=== PATIENT | male | born 1990 | race Caucasian/White ===

== ENCOUNTER 2016-10-24 13:07 | Emergency (ER) | payer BC ==
[~2016-10-24 13:07] MED LIST: ADVIL200 M1 PO; CLONIDINE HCL0.1 MG PO; DEPAKOTE500 MG; HUMALOG KW200 UNIT/1 SC; HUMALOG100 U/ML; LANTUS100 U/ML; LANTUS100 U/ML SC; LANTUS100 UNITS/ SC; NORCO 5/325 TAB1 TAB PO; PHENERGAN25 MG/SUPP RC; PHOS NAK PO; REGLAN5 MG PO; ROZEREM8 MG; ZOFRAN ODT4 MG/UDTAB PO; ZOFRAN4 MG PO; ZOLOFT100 MG; [UNRECOGNIZED DRUG - REMARK]
[2016-10-24] MEDS ORDERED: PROZAC20 M3 (13:14)
[2016-10-24] MEDS ORDERED: TRESIBA FL200 UNIT/1 SC (13:21)
[2016-10-24] MEDS ORDERED: LANTUS100 UNITS/ SC (13:22)
[2016-10-24 13:33] LABS: BASO % 0.1 % (0-2); HCT-HEMATOCRIT 43.4 % (36.0-53.5); HGB-HEMOGLOBIN 15.3 gm/dl (13.5-17.0); IMMATURE GRANULOCYTES ABSOLUTE 0.03 tho/cmm (0-0.03); IMMATURE GRANULOCYTES PERCENT 0.2 % (0-0.3); LYMPH % 9.5 % (20-45); LYMPH ABSOLUTE COUNT 1.2 tho/cmm (0.8-4.5); MCH (MEAN CORPUSCULAR HGB) 29.5 pg (28.0-32.0); MCHC MEAN CORPUSCULAR HGB CONC 35.3 % (32.0-36.0); MCV (MEAN CELL VOLUME) 83.6 fl (82.0-96.0); MONO % 3.8 % (0-12); MONOCYTE ABSOLUTE COUNT 0.5 tho/cmm (0.0-1.2); NEUTROPHIL ABSOLUTE COUNT 10.7 tho/cmm (1.6-8.0); NEUTROPHIL-AUTOMATED 10.7 tho/cmm (1.6-8.0); NEUTROPHILS % 86.4 % (40-80); PLATELET COUNT 275 tho/cmm (150-450); RED BLOOD COUNT 5.19 mil/cmm (4.40-5.70); RED CELL DISTRIBUTION WIDTH 12.9 % (12.4-16.4); WHITE BLOOD COUNT 12.4 tho/cmm (4.0-10.0)
[2016-10-24 13:40] LABS: KETONE-BETA (WHOLE BLOOD) 1.8 mmol/L (0.0-0.6)
[2016-10-24 13:56] LABS: ALB/GLOB RATIO 1.5 (0.8-2.0); ALBUMIN 4.8 g/dl (3.5-5.0); ALKALINE PHOSPHATASE 77 U/L (33-138); ALT/SGPT 27 U/L (12-78); ANION GAP 23 mmol/L (0-20); AST/SGOT 25 U/L (10-40); BILIRUBIN,DIRECT 0.2 mg/dl (0.0-0.3); BILIRUBIN,INDIRECT 0.8 mg/dL (0.0-1.0); BLOOD UREA NITROGEN 19 mg/dl (6-24); CALCIUM 9.4 mg/dl (8.5-10.5); CARBON DIOXIDE-VENOUS 17 mmol/L (22-32); CHLORIDE 103 mmol/l (96-110); CREATININE 1.23 mg/dl (0.60-1.30); GLUCOSE 203 mg/dL (70-110); LIPASE 59 U/L (73-393); POTASSIUM 4.2 mmol/L (3.7-5.1); SODIUM 139 mmol/L (135-145); eGFR VALUE FOR BLACK >90 mL/Min
[2016-10-24 15:35] LABS: URINE LEUKOCYTE ESTERASE NEGATIVE (NEG); URINE PROTEIN MODERATE (NEG)
[2016-10-24 15:38] LABS: URINE APPEARANCE CLEAR; URINE BILIRUBIN NEGATIVE (NEG); URINE BLOOD SMALL (NEG); URINE COLOR YELLOW; URINE GLUCOSE (UA) MODERATE (NEG); URINE KETONE LARGE (NEG); URINE NITRITE NEGATIVE (NEG)
[2016-10-24 15:43] LABS: URINE EPITHELIAL CELLS 0-1 /[HPF] (0-10); URINE RBC 0-1 /[HPF] (0-5); URINE WBC 0 /[HPF] (0-5)
[2016-10-24 16:14] LABS: KETONE-BETA (WHOLE BLOOD) 2.7 mmol/L (0.0-0.6)
[2016-10-24 16:21] LABS: ANION GAP 16 mmol/L (0-20); BLOOD UREA NITROGEN 17 mg/dl (6-24); CALCIUM 8.5 mg/dl (8.5-10.5); CARBON DIOXIDE-VENOUS 22 mmol/L (22-32); CHLORIDE 109 mmol/l (96-110); CREATININE 0.91 mg/dl (0.60-1.30); POTASSIUM 4.1 mmol/L (3.7-5.1); SODIUM 143 mmol/L (135-145); eGFR VALUE FOR BLACK >90 mL/Min
[2016-10-24 16:26] LABS: GLUCOSE 92 mg/dL (70-110)
[2016-10-24] MEDS ORDERED: ZOFRAN ODT4 MG PO (17:09)
== END 2016-10-24 17:30 ==
LOC: EDMED 13:07
PROVIDERS: Emergency Medicine
DX: E10.649 Type 1 diabetes mellitus with hypoglycemia without coma (principal); E86.0 Dehydration; R11.2 Nausea with vomiting, unspecified; Z79.4 Long term (current) use of insulin; Z98.890 Other specified postprocedural states; F17.200 Nicotine dependence, unspecified, uncomplicated
CPT/HCPCS: J1815; J2405; J7030